=== PATIENT | male | born 1980 | race Caucasian/White ===

== ENCOUNTER 2018-08-30 15:46 | Emergency (ER) | payer SELFPAY ==
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
[2018-08-30] MEDS ORDERED: LIDOCAINE 2% VISCOUS SOLN 20 ML UDCUP PO ONE (16:54)
[2018-08-30 16:58] VITALS: BP 129/54
== END 2018-08-30 17:07 | disposition home or self-care (01) ==
LOC: ER 15:46
DX: K08.89 Other specified disorders of teeth and supporting structures (principal); R51 Headache; F17.200 Nicotine dependence, unspecified, uncomplicated
CPT/HCPCS: 99282; J3490